=== PATIENT | female | born 1965 | race Caucasian/White ===

== ENCOUNTER 2021-04-14 12:14 | Outpatient (CLI) | payer BC | END 2021-04-14 12:15 | disposition home or self-care (01) | LOC: CSHCT 12:14 | PROVIDERS: ATTEND Internal Medicine Gastroenterology | DX: K76.9 Liver disease, unspecified (principal); M43.17 Spondylolisthesis, lumbosacral region | CPT/HCPCS: 74170 ==

== ENCOUNTER 2021-04-14 14:12 | Outpatient (CLI) | payer BC | END 2021-04-14 14:13 | disposition home or self-care (01) | LOC: CSHMAMMO 14:12 | PROVIDERS: ATTEND Family Medicine | DX: Z12.31 Encounter for screening mammogram for malignant neoplasm of breast (principal); Z91.89 Other specified personal risk factors, not elsewhere classified | CPT/HCPCS: 77063; 77067 ==

== ENCOUNTER 2022-06-27 15:46 | Outpatient (CLI) | payer BC | END 2022-06-27 15:47 | disposition home or self-care (01) | LOC: CSHMAMMO 15:46 | PROVIDERS: ATTEND Family Medicine | DX: Z12.31 Encounter for screening mammogram for malignant neoplasm of breast (principal); Z91.89 Other specified personal risk factors, not elsewhere classified | CPT/HCPCS: 77063; 77067 ==